=== PATIENT | female | born 1995 | race Caucasian/White ===

== ENCOUNTER 2017-09-25 10:06 | Emergency (ER) | payer OTHER, MEDICAID ==
[~2017-09-25 10:06] MED LIST: FERR324T4 PO; PREN0.01 PO
[2017-09-25 10:07] VITALS: BP 127/73; PULSE 116; RESP 14; TEMP 99.8; O2SAT 100
--- NOTE | 2017-09-25 10:36 | PD ---
HPI Chief Complaint: Cardiac Complaint Time Seen by Provider: 10:25 Travel History International Travel<30 days: No Contact w/Intl Traveler<30days: No Traveled to known affect area: No History of Present Illness HPI The patient was seen and examined in the presence of the nurse. This patient reports that she is 14 weeks . She has 24 hours of central chest pain and shortness of breath. At the same time her symptoms started she developed a cough. When she takes of breath or coughs or pain comes on. Symptoms are not exertional. No hemoptysis. Severity is mild to moderate. No alleviating factors. Symptoms worsened by cough or deep breath. No leg symptoms. PFSH Past Medical History Medical History: Denies Significant Hx Diminished Hearing: No Tetanus Vaccination: > 5 Years Influenza Vaccination: No ?: : 3 Para: 2 Past Surgical History Surgical History: No Previous Surgery Social History Alcohol Use: Yes Tobacco Use: No (quit) Substance Use: No Allergies-Medications (Allergen,Severity, Reaction): Coded Allergies: No Known Allergies (Verified Adverse Reaction, Unknown, 09/25/17) Reported Meds & Prescriptions Reported Meds & Active Scripts Active No Active Prescriptions or Reported Medications Review of Systems General / Constitutional: No: Fever Eyes: No: Visual changes HENT: No: Headaches Cardiovascular: Positive: Chest Pain or Discomfort Respiratory: Positive: Cough, Shortness of Breath Gastrointestinal: No: Abdominal Pain Genitourinary: No: Dysuria Musculoskeletal: No: Pain Skin: No Rash Neurologic: No: Weakness Psychiatric: No: Depression Endocrine: No: Polydipsia Hematologic/Lymphatic: No: Easy Bruising Physical Exam Narrative GENERAL: Well-nourished, well-developed patient in no apparent distress. SKIN: Focused skin assessment reveals no rash and nodules. Skin is Warm and dry. HEAD: Atraumatic. Normocephalic. EYES: Pupils equal and round. No scleral icterus. No injection or drainage. ENT: No nasal bleeding or discharge. Mucous membranes pink and moist. NECK: Trachea midline. No JVD. CARDIOVASCULAR: Regular rate and rhythm. No murmur appreciated. RESPIRATORY: No accessory muscle use. Clear to auscultation. Breath sounds equal bilaterally. GASTROINTESTINAL: Abdomen soft, non-tender, nondistended. Hepatic and splenic margins not palpable. MUSCULOSKELETAL: No obvious deformities. No clubbing. No cyanosis. No edema. NEUROLOGICAL: Awake and alert. No obvious cranial nerve deficits. Motor grossly within normal limits. Normal speech. PSYCHIATRIC: Appropriate mood and affect; insight and judgment normal. Data Data Last Documented VS Vital Signs Date Time Temp Pulse Resp B/P (MAP) Pulse Ox O2 Delivery O2 Flow Rate FiO2 09/25/17 12:30 95 18 102/68 (79) 97 Room Air 09/25/17 10:07 99.8 Orders Orders Chest, Single Ap (09/25/17 ) Electrocardiogram (09/25/17 ) Iv Access Insert/Monitor (09/25/17 11:41) Complete Blood Count With Diff (09/25/17 11:41) Basic Metabolic Panel (Bmp) (09/25/17 11:41) Beta Hcg (Quant/Titer) (09/25/17 11:41) Prothrombin Time / Inr (Pt) (09/25/17 11:41) Act Partial Throm Time (Ptt) (09/25/17 11:41) Lung Scan - Perfusion (09/25/17 11:50) Labs Laboratory Tests Test 09/25/17 12:20 White Blood Count 3.6 TH/MM3 Red Blood Count 4.08 MIL/MM3 Hemoglobin 12.6 GM/DL Hematocrit 36.8 % Mean Corpuscular Volume 90.1 FL Mean Corpuscular Hemoglobin 30.9 PG Mean Corpuscular Hemoglobin Concent 34.3 % Red Cell Distribution Width 12.3 % Platelet Count 128 TH/MM3 Mean Platelet Volume 8.6 FL Neutrophils (%) (Auto) 67.2 % Lymphocytes (%) (Auto) 19.3 % Monocytes (%) (Auto) 13.2 % Eosinophils (%) (Auto) 0.1 % Basophils (%) (Auto) 0.2 % Neutrophils # (Auto) 2.4 TH/MM3 Lymphocytes # (Auto) 0.7 TH/MM3 Monocytes # (Auto) 0.5 TH/MM3 Eosinophils # (Auto) 0.0 TH/MM3 Basophils # (Auto) 0.0 TH/MM3 CBC Comment DIFF FINAL Differential Comment Prothrombin Time 10.6 SEC Prothromb Time International Ratio 1.0 RATIO Activated Partial Thromboplast Time 30.3 SEC Blood Urea Nitrogen 5 MG/DL Creatinine 0.54 MG/DL Random Glucose 85 MG/DL Calcium Level 9.0 MG/DL Sodium Level 134 MEQ/L Potassium Level 3.6 MEQ/L Chloride Level 102 MEQ/L Carbon Dioxide Level 22.6 MEQ/L Anion Gap 9 MEQ/L Estimat Glomerular Filtration Rate 139 ML/MIN Human Chorionic Gonadotropin, Quant 05310 MIU/ML MDM Medical Decision Making Medical Screen Exam Complete: Yes Emergency Medical Condition: Yes Medical Record Reviewed: Yes Differential Diagnosis Bronchitis, pneumonia, pleurisy, PE Narrative Course I have reviewed the patient's electronic medical record. Patient looks clinically well with saturations of 100% and doesn't look short of breath However given her symptoms some testing is indicated She accepts and agrees to risk of radiation to get imaging done She will get a shielded chest x-ray and EKG start I reviewed her EKG which shows sinus rhythm at [address] elevation or ectopy I reviewed her chest x-ray which is normal Had a lengthy risk-benefit discussion with the patient. Symptoms are concerning for PE and her places her at greater risk for this. Therefore I have ordered a VQ scan. We discussed the drawbacks of the test. If it comes back indeterminate she will then unfortunately require CT pulmonary angiogram. I'm trying to avoid radiation load to her by ordering a V/Q. CBC and metabolic profiles are normal Beta titer 60,000 fortunately her VQ scan is come back as low probability.She is stable for outpatient follow-up. She should call her physician on Wednesday and return if she has significant worsening. Diagnosis Primary Impression: Pleuritic chest pain Additional Impression: and not yet delivered in second trimester Additional Instructions: The patient was advised to follow up with their physician and return if they worsen. Med/Other Pt SpecificInfo: Other Scripts No Active Prescriptions or Reported Meds Disposition: DISCHARGE HOME Condition: Stable Dontrell Gold MD Sep 25, 2017 10:36
--- NOTE | 2017-09-25 11:24 | RADRPT ---
EXAM DATE/TIME: 09/25/2017 11:07 [facility] COMPARISON: No previous studies available for comparison. INDICATIONS : Shortness of breath. MEDICAL HISTORY : None. SURGICAL HISTORY : None. ENCOUNTER: Initial ACUITY: 3 days PAIN SCORE: 0/10 LOCATION: chest FINDINGS: A single view of the chest demonstrates the lungs to be symmetrically aerated without evidence of mas s, infiltrate or effusion. The cardiomediastinal contours are unremarkable. Osseous structures are intact. CONCLUSION: No acute disease. Yoav Gr MD on September 25, 2017 at 11:22 Board Certified Radiologist. This report was verified electronically.
[2017-09-25 12:27] LABS: AUTOMATED NEUTROPHIL # 2.4 TH/MM3 (1.8-7.7); BASOPHIL % 0.2 % (0.0-2.0); EOSINOPHIL % 0.1 % (0.0-4.0); HEMATOCRIT 36.8 % (35.0-46.0); HEMOGLOBIN 12.6 GM/DL (11.6-15.3); LYMPH % 19.3 % (9.0-44.0); LYMPHOCYTE # 0.7 TH/MM3 (1.0-4.8); MEAN CELL VOLUME 90.1 FL (80.0-100.0); MEAN CORPUSCULAR HEMOGLOBIN 30.9 PG (27.0-34.0); MEAN CORPUSCULAR HGB CONC 34.3 % (32.0-36.0); MEAN PLATELET VOLUME 8.6 FL (7.0-11.0); MONO % 13.2 % (0.0-8.0); MONOCYTE # 0.5 TH/MM3 (0-0.9); NEUT % 67.2 % (16.0-70.0); PLATELET COUNT 128 TH/MM3 (150-450); RED BLOOD COUNT 4.08 MIL/MM3 (4.00-5.30); RED CELL DISTRIBUTION WIDTH 12.3 % (11.6-17.2); WHITE BLOOD COUNT 3.6 TH/MM3 (4.0-11.0)
[2017-09-25 12:30] VITALS: BP 102/68; PULSE 95; RESP 18; O2SAT 97
[2017-09-25 12:36] LABS: PROTHROMBIN TIME - PATIENT 10.6 SEC (9.8-11.6)
[2017-09-25 12:43] LABS: BICARBONATE 22.6 MEQ/L (21.0-32.0); CREATININE 0.54 MG/DL (0.50-1.00)
--- NOTE | 2017-09-25 14:10 | RADRPT ---
EXAM DATE/TIME: 09/25/2017 13:00 [facility] COMPARISON: No previous studies available for comparison. INDICATIONS : Shortness of breath with chest pain, patient . DOSE: 1.1 mCi Tc99m Labeled MAA IV MEDICAL HISTORY : None. SURGICAL HISTORY : None. ENCOUNTER: Initial ACUITY: 1 day PAIN SCALE: 3/10 LOCATION: Bilateral chest TECHNIQUE: The patient was injected with MAA, and eight-view perfusion scan was performed. FINDINGS: PERFUSION: There is a homogenous pattern of radiotracer uptake throughout both lungs. CONCLUSION: 1. Low probability for embolism Amauri Flores MD on September 25, 2017 at 13:57 Board Certified Radiologist. This report was verified electronically.
[2017-09-25 15:25] VITALS: BP 117/71
--- NOTE | 2017-09-26 14:05 | EKG ---
Date Performed: 09/25/2017 Time Performed: 10:37:50 PTAGE: 22 years EKG: SINUS TACHYCARDIA ABNORMAL RHYTHM ECG NO PREVIOUS TRACING DOCTOR: Gautam Rodriguez Interpretating Date/Time 09/26/2017 14:04:05
== END 2017-09-25 15:39 | disposition home or self-care (01) ==
LOC: NEPD 10:06
DX: O26.892 Other specified pregnancy related conditions, second trimester (principal); R07.89 Other chest pain; R06.02 Shortness of breath; R05 Cough; R00.0 Tachycardia, unspecified; R94.31 Abnormal electrocardiogram [ECG] [EKG]; Z3A.14 14 weeks gestation of pregnancy; Z34.92 Encounter for supervision of normal pregnancy, unspecified, second trimester
CPT/HCPCS: 71045; 78580; 80048; 84702; 85025; 85610; 85730; 93005; 99285; A9540

== ENCOUNTER 2018-02-10 12:32 | Emergency (ER) | payer OTHER, MEDICAID ==
--- NOTE | 2018-02-10 13:35 | PD ---
HPI Chief Complaint decreased movement Travel History International Travel<30 Days: No Contact w/Intl Traveler<30Days: No Known Affected Area: No History of Present Illness HPI Patient is a 22 yo F at 34 weeks gestation who presented to OB triage from her regular check up at [facility] decreased reactivity on doppler. Patient also with c/o of decreased movements for the past week. The baby still moves but is not as active as what is normal for her. Since being in the OB triage she has felt the baby move twice. Denies LOF or vaginal bleeding. Endorses mild on and off Taliaferro burch contractions. Denies CP, fever, chill, N/ V or abdominal pain. Weeks Gestation: 34 Para: 3 : 3 History Past Medical History Medical History: Denies Significant Hx Obstetric History Obstetric History x2, no complications no complications with this thus far Past Surgical History Surgical History: No Previous Surgery Family History Family History: Negative Social History Alcohol Use: No Tobacco Use: No Substance Abuse: No Allergies-Medications (Allergen,Severity, Reaction): Coded Allergies: No Known Allergies (Verified Adverse Reaction, Unknown, 09/25/17) Home Meds No Active Prescriptions or Reported Meds Review of Systems Except as stated in HPI: all other systems reviewed are Neg Physical Exam Narrative GENERAL: Well-nourished, well-developed patient. SKIN: Warm and dry. HEAD: Normocephalic and atraumatic. EYES: No scleral icterus. No injection or drainage. ENT: No nasal drainage noted. Mucous membranes pink. Airway patent. NECK: Supple, trachea midline. No JVD. CARDIOVASCULAR: Regular rate and rhythm without murmurs, gallops, or rubs. RESPIRATORY: Breath sounds equal bilaterally. No accessory muscle use. ABDOMEN/GI: Abdomen soft, non-tender, bowel sounds present, no rebound, no guarding Gravid to 34 weeks size GENITOURINARY: External Genitalia: intact and normal in appearance Membranes: intact Uterine Contractions: none FHT's: Category: 1 Baseline: 140 Reactive: yes Variability: moderate Decels: none EXTREMITIES: No cyanosis or edema. BACK: Nontender without obvious deformity. No CVA tenderness. NEUROLOGICAL: Awake and alert. Motor and sensory grossly within normal limits. Five out of 5 muscle strength in all muscle groups. Normal speech. Data Data Vital Signs Reviewed: Yes [facility] Medical Record Reviewed: Yes Plan Patient is a 22 yo F at 34 weeks gestation who presented to OB triage from her regular check up at [facility] decreased reactivity on doppler and c/o decreased movements. IUP at [address] patient on monitor for monitoring 1. category 1, NST reassuring 2. f/u UA 3. Patient to f/u with OB doctor as outpatient DW Dr. Galvan Diagnosis Diagnosis: Primary Impression: 34 weeks gestation of Disposition: 01 DISCHARGE HOME Condition: Stable Scripts No Active Prescriptions or Reported Meds Patient Instructions: General Instructions, Movement (ED) Rj Engle MD, R1 February 10, 2018 13:35
[2018-02-10 14:23] LABS: BACTERIA, URINE OCC /hpf; BILIRUBIN, URINE NEG (NEG); BLOOD, URINE NEG (NEG); GLUCOSE,URINE NEG (NEG); KETONE, URINE NEG (NEG); MUCUS URINE FEW /lpf (OCC); NITRITE,URINE NEG (NEG); PH, URINE 6.5 (5.0-8.5); SQUAMOUS EPITHELIAL CELL URINE 28 /hpf (0-5); URINE COLOR YELLOW (YELLW/STRAW); URINE LEUKOCYTE ESTERASE LARGE (NEG)
== END 2018-02-10 14:35 | disposition home or self-care (01) ==
LOC: HOBED 12:32
DX: O36.8130 Decreased fetal movements, third trimester, not applicable or unspecified (principal); Z3A.34 34 weeks gestation of pregnancy
CPT/HCPCS: 59025; 81001; 87086

== ENCOUNTER 2018-03-03 03:38 | Emergency (ER) | payer OTHER, MEDICAID ==
[~2018-03-03] VITALS: Ht 170.2 cm; Wt 70.3 kg
--- NOTE | 2018-03-03 05:23 | PD ---
HPI Chief Complaint ctxs Date Seen: Mar 03, 2018 Travel History International Travel<30 Days: No Contact w/Intl Traveler<30Days: No Known Affected Area: No History of Present Illness HPI pt. is a @37 weeks presents w/ c/o ctxs. pt. states thruout the evening has had ctxs that have increased in intensity and freq. +FM, no lof/ vb. pt. have cervical exam and have some vaginal bleeding. Weeks Gestation: 37 Para: 2 : 3 History Past Medical History Medical History: Denies Significant Hx Obstetric History Obstetric History , x 2 Past Surgical History Surgical History: No Previous Surgery Family History Family History: Negative Social History Alcohol Use: No Tobacco Use: No Substance Abuse: No Allergies-Medications (Allergen,Severity, Reaction): Coded Allergies: No Known Allergies (Verified Adverse Reaction, Unknown, 03/03/18) Home Meds No Active Prescriptions or Reported Meds Review of Systems Except as stated in HPI: all other systems reviewed are Neg Physical Exam Narrative GENERAL: Well-nourished, well-developed patient. SKIN: Warm and dry. HEAD: Normocephalic and atraumatic. EYES: No scleral icterus. No injection or drainage. ENT: No nasal drainage noted. Mucous membranes pink. Airway patent. NECK: Supple, trachea midline. No JVD. CARDIOVASCULAR: Regular rate and rhythm without murmurs, gallops, or rubs. RESPIRATORY: Breath sounds equal bilaterally. No accessory muscle use. ABDOMEN/GI: Abdomen soft, non-tender, bowel sounds present, no rebound, no guarding Gravid GENITOURINARY: External Genitalia: intact and normal in appearance SSE: some blood in post fornix. Dilatation: 3 Effacement: 70 Station: high Presentation: cephalic Membranes: intact Uterine Contractions: q3mins FHT's: Category: 1 Reactive: + Variability: mod EXTREMITIES: No cyanosis or edema. BACK: Nontender without obvious deformity. No CVA tenderness. NEUROLOGICAL: Awake and alert. Motor and sensory grossly within normal limits. Five out of 5 muscle strength in all muscle groups. Normal speech. 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 not in active labor. fht reassuring. pt. w/ medium amount of blood on pad and exam glove after cervical exam. blood noted in vault on exam, but resolved. bedside u/s performed and no bleeding noted. pt. observed for extended time and not believed to be having placental abruption. pt. to be d/c to home. given precautions for return. all ? answered. f/u as sched. Diagnosis Diagnosis: Primary Impression: False labor at or after 37 completed weeks of gestation, antepartum Additional Impressions: 37 or more weeks gestation of Vaginal bleeding during , antepartum Disposition: 01 DISCHARGE HOME Condition: Stable Scripts No Active Prescriptions or Reported Meds Jarod Galvan Jr., MD Mar 03, 2018 05:23
== END 2018-03-03 07:17 | disposition home or self-care (01) ==
LOC: HOBED 03:38
DX: O47.1 False labor at or after 37 completed weeks of gestation (principal); O46.93 Antepartum hemorrhage, unspecified, third trimester; Z3A.37 37 weeks gestation of pregnancy
CPT/HCPCS: 59025; 76815

== ENCOUNTER 2018-03-24 04:04 | Inpatient (IN) ==
[2018-03-24] MEDS ORDERED: Sodium Chlor 0.9% Inj 500 ML IV.SIG ONE (05:18)
[2018-03-24] MEDS ORDERED: Oxytocin 30 Units/500ml Premix 30 UNITS/500 ML BAG IV.SIG ONE (05:18)
[2018-03-24] MEDS ORDERED: Naloxone Inj 0.4 MG/ML Vial IV.PUSH PRN ×2 (05:18→15:56)
[2018-03-24] MEDS ORDERED: fentaNYL Citrate Inj 100 MCG/2 ML Ampul IV.PUSH PRN ×2 (05:18)
--- NOTE | 2018-03-24 05:27 | P.HPOB ---
History of Present Illness Primary Care Physician: UNKNOWN History of Present Illness: Patient's 22-year-old white female at 40 weeks presents to OB ED with spontaneous rupture of membranes early contractions. Patient goes to [facility] for care. We have her records. amnisure was positive, heart rate tracing is reactive she is michael every 3-4 minutes not really feeling them much Weeks Gestation:: 40 Para: 2 : 3 - Inpatient Certification If this patient has been admitted as an Inpatient: I certify that the inpatient services were ordered in accordance with Medicare regulations governing the order. This includes certification that hospital inpatient services are reasonable and necessary and in the case of services not specified as inpatient-only under 42 CFR 419.22(n), that they are appropriately provided as inpatient services in accordance to with the 2-midnight benchmark under 43 CFR 412.3(e) Estimated Total Length of Stay (Days): 2 Plans for Post Hospital Care: Home Review of Systems Constitutional: Denies anorexia, Denies body ache(s), Denies chills, Denies daytime sleepiness, Denies excessive sweating, Denies fatigue, Denies fever(s), Denies headache(s), Denies increased appetite, Denies lack of energy, Denies malaise, Denies night sweats, Denies weakness, Denies weight gain, Denies weight loss, Denies other Cardiovascular: Denies bluish discoloration of hand/feet, Denies chest pain, Denies chest pain at rest, Denies chest pain with activity, Denies excessive sweating, Denies fainting, Denies fast heart rate, Denies foot swelling, Denies generalized swelling, Denies irregular heart rhythm, Denies leg pain with activity, Denies leg sores, Denies leg swelling, Denies lightheadedness, Denies radiating jaw, neck or arm pain, Denies rapid, pounding, or irregular heartbeat , Denies shortness of breath, Denies shortness of breath with activity, Denies shortness of breath when lying down, Denies shortness of breath causing sudden awakening, Denies slow heart rate, Denies other Respiratory: Denies change in phlegm color, Denies chest congestion, Denies cough, Denies coughing up blood, Denies excessive phlegm production, Denies pain on inspiration, Denies pain with cough, Denies shortness of breath, Denies shortness of breath with activity, Denies snoring, Denies stridor, Denies wheezing, Denies other Gastrointestinal: Denies abdominal pain, Denies belching, Denies black, tarry stools, Denies bloating, Denies bright, red blood in stools, Denies change in bowel habits, Denies constant urge to pass stool, Denies change in stools, Denies coffee ground vomit, Denies constipation, Denies cramping, Denies difficulty swallowing, Denies excessive passing of gas, Denies feeling full early, Denies heartburn, Denies incontinent of stools, Denies loose stools, Denies nausea, Denies pain with swallowing, Denies vomiting, Denies vomiting blood, Denies other Genitourinary: Denies abnormal periods, Denies abnormal vaginal bleeding, Denies absent period, Denies bleeding between periods, Denies blood in urine, Denies difficulty starting urination, Denies difficulty urinating, Denies dribbling after urination, Denies frequent nighttime urination, Denies genital itching, Denies genital lesions, Denies heavy periods, Denies hot flashes, Denies light periods, Denies nipple discharge, Denies painful intercourse, Denies painful periods, Denies painful urination, Denies pelvic pain, Denies prolapse symptoms, Denies sexual problems, Denies side pain, Denies urinary incontinence, Denies urinary urgency, Denies vaginal discharge, Denies vaginal dryness, Denies vaginal odor, Denies vaginal itching, Denies other Neurologic: Denies abnormal hearing, Denies abnormal movements, Denies abnormal speech, Denies abnormal walking, Denies behavioral changes, Denies burning sensations, Denies confusion, Denies dizziness, Denies fainting, Denies frequent falls, Denies headache(s), Denies lack of coordination, Denies localized weakness, Denies loss of vision, Denies memory loss, Denies numbness, Denies other visual disturbances, Denies radiating pain, Denies restless legs, Denies convulsions, Denies seizure-like activity, Denies sensory deficit, Denies tingling, Denies tingling/numbness/burning sensations, Denies tremor(s), Denies unsteadiness, Denies weakness, Denies other PMFSH - History History Provided By: Patient - Tobacco History Smoking Status: Never smoker - Alcohol History How Often Do You Have a Drink Containing Alcohol: Never - Substance Use History Substance History: No History of Abuse - Travel History Recent Travel in the [place] Within the Last 8 Weeks: No Recent Travel Out of the Country Within the Last 8 Weeks: No Medications and Allergies Active Medications: Active Medications Citric Acid/Sodium Citrate (Sod Citrate/Citric Acid Liq) 30 ml PO [facility] Stop: 03/28/18 05:29 Fentanyl Citrate (Fentanyl Inj) 50 mcg IV.PUSH Q1H PRN PRN Reason: Pain Scale 3 - 5 Fentanyl Citrate (Fentanyl Inj) 100 mcg IV.PUSH Q1H PRN PRN Reason: PAIN SCALE 6 TO 10 Lactated Ringer's (Lr 1000 Ml Inj) 3,000 mls @ 3,000 mls/hr IV.SIG UNSCH ONE Stop: 03/24/18 06:17 Sodium Chloride (Ns Inj) 1,000 mls @ 100 mls/hr IV.CONT .Q10H [facility] Lactated Ringer's (Lr 1000 Ml Inj) 1,000 mls @ 125 mls/hr IV.CONT .Q8H [facility] Lidocaine HCl (Xylocaine 1% Inj) 0.1 ml INFILTRATN PRN PRN PRN Reason: For IV start Stop: 03/27/18 05:17 Lidocaine HCl (Xylocaine 1% Inj) 10 ml INFILTRATN PRN PRN PRN Reason: For episiotomy repair Stop: 03/26/18 05:17 Mineral Oil (Muri-Lube Oil) 10 ml TOPICAL PRN PRN PRN Reason: PRN perineal massage Naloxone HCl (Narcan Inj) 0.1 mg IV.PUSH Q2M PRN PRN Reason: for opiate reversal Allergies Allergy/AdvReac Type Severity Reaction Status Date / Time No Known Allergies AdvReac Unknown NONE Uncoded 03/24/18 04:55 Home Medications Medication Instructions Recorded Confirmed Type No Known Home Medications 03/20/18 03/24/18 History Exam Vital signs: Vital Signs 03/24/18 04:29 Temperature 97.9 F Pulse Rate 94 H Respiratory Rate 18 Blood Pressure 110/85 Intake & Output 03/23/18 03/23/18 03/24/18 06:59 18:59 06:59 Weight 157 kg - Constitutional no acute distress - Routine HEENT Exam Head: Present: normocephalic, atraumatic Eye: Present: PERRL - Routine Neck Exam Present: supple, full ROM - Routine Cardiovascular Exam Present: RRR - Routine Abdominal Exam Present: soft - Routine Exam Comments: Patient with gross rupture of membranes positive amnisure, cervix is 3/50/ minus [address] for several weeks Caprini VTE Risk Assessment Caprini VTE Risk Assessment: No/Low Risk (score <= 1) Caprini Risk Assessment Model: Point Value = 1 Point Value = 2 Point Value = 3 Point Value = 5 Age 41-60 Minor surgery BMI > 25 kg/m2 Swollen legs Varicose veins or History of unexplained or recurrent spontaneous Oral contraceptives or hormone replacement Sepsis (< 1 month) Serious lung disease, including pneumonia (< 1 month) Abnormal pulmonary function Acute myocardial infarction Congestive heart failure (< 1 month) History of inflammatory bowel disease Medical patient at bed rest Age 61-74 Arthroscopic surgery Major open surgery (> 45 min) Laparoscopic surgery (> 45 min) Malignancy Confined to bed (> 72 hours) Immobilizing plaster cast Central venous access Age >= 75 History of VTE Family history of VTE Factor V Leiden Prothrombin [id number] Lupus anticoagulant Anticardiolipin antibodies Elevated serum homocysteine Heparin-induced thrombocytopenia Other congenital or acquired thrombophilia Stroke (< 1 month) Elective arthroplasty Hip, pelvis, or leg fracture Acute spinal cord injury (< 1 month) Prophylaxis Regimen: Total Risk Factor Score Risk Level Prophylaxis Regimen 0-1 Low Early ambulation 2 Moderate Order ONE of the following: *Sequential Compression Device (SCD) *Heparin 5000 units SQ BID 3-4 Higher Order ONE of the following medications: *Heparin 5000 units SQ TID *Enoxaparin/Lovenox 40 mg SQ daily (WT < 150 kg, CrCl > 30 mL/min) *Enoxaparin/Lovenox 30 mg SQ daily (WT < 150 kg, CrCl > 10-29 mL/min) *Enoxaparin/Lovenox 30 mg SQ BID (WT < 150 kg, CrCl > 30 mL/min) AND/OR *Sequential Compression Device (SCD) 5 or more Highest Order ONE of the following medications: *Heparin 5000 units SQ TID (Preferred with Epidurals) *Enoxaparin/Lovenox 40 mg SQ daily (WT < 150 kg, CrCl > 30 mL/min) *Enoxaparin/Lovenox 30 mg SQ daily (WT < 150 kg, CrCl > 10-29 mL/min) *Enoxaparin/Lovenox 30 mg SQ BID (WT < 150 kg, CrCl > 30 mL/min) AND *Sequential Compression Device (SCD) Assessment and Plan - Diagnosis (1) Spontaneous rupture of amniotic membranes Status: Acute Plan: Plan for this patient is admission to labor and delivery, monitor mother and fetus, augment labor as needed, and anticipate vaginal delivery
[2018-03-24] MEDS ORDERED: Sod Chloride 0.9% Inj 1,000 ML IV.CONT SCH (05:30)
[2018-03-24] MEDS ORDERED: Citric Acid/Sodium Citrate Liq 15 ML UDC PO SCH (05:30)
[2018-03-24 06:30] LABS: Baso % (Auto) 0.2 % (0.0-2.0); Eos # (Auto) 0.1 th/mm3 (0.0-0.4); Eos % (Auto) 0.8 % (0.0-4.0); Hematocrit 35.4 % (35.0-46.0); Hemoglobin 12.1 gm/dL (11.6-15.3); Lymph # (Auto) 2.7 th/mm3 (1.0-4.8); Lymph % (Auto) 30.6 % (9.0-44.0); Mean Corpuscular HGB Conc 34.2 % (32.0-36.0); Mean Corpuscular Hemoglobin 30.3 pg (27.0-34.0); Mean Corpuscular Volume 88.4 fL (80.0-100.0); Mean Platelet Volume 8.5 fL (7.0-11.0); Mono # (Auto) 0.9 th/mm3 (0.0-0.9); Mono % (Auto) 9.6 % (0.0-8.0); Neut # (Auto) 5.2 th/mm3 (1.8-7.7); Neut % (Auto) 58.8 % (16.0-70.0); Platelet Count 172 th/mm3 (150-450); Red Cell Distribution Width 13.3 % (11.6-17.2); White Blood Count 8.9 th/mm3 (4.0-11.0)
[2018-03-24 08:09] LABS: Bacteria,Urine Rare /hpf; Bilirubin,Urine Negative (Negative); Clarity,Urine Clear (Clear); Color,Urine Yellow (Yellw/Straw); Glucose,Urine (UA) Negative (Negative); Leukocyte Esterase,Urine Negative (Negative); Mucus,Urine Few /lpf (Occasional); Nitrite,Urine Negative (Negative); Specific Gravity,Urine 1.006 (1.002-1.035)
[2018-03-24 08:15] LABS: Amphetamine Urine With Conf Neg (Neg); Benzodiazepine Urine With Conf Neg (Neg)
[2018-03-24] MEDS ORDERED: Oxytocin 30 Units/500ml Premix 30 UNITS/500 ML BAG IV.SIG PRN (08:42)
[2018-03-24] MEDS ORDERED: fentaNYL 2MCG-Bupiv 0.125% Epi 150 ML EPIDURAL ONE (09:24)
[2018-03-24] MEDS ORDERED: fentaNYL Citrate Inj 100 MCG/2 ML Ampul EPIDURAL ONE (12:47)
[2018-03-24] MEDS ORDERED: fentaNYL 2MCG-Bupiv 0.125% Epi 150 ML EPIDURAL PRN (12:47)
[2018-03-24] MEDS ORDERED: Lidocaine PF 1% Inj 30 ML Vial ONE (15:23)
[2018-03-24] MEDS ORDERED: Witch Hazel 50%/Glyderin 12.5% 40 Pad Jar RECTAL PRN (15:56)
[2018-03-24] MEDS ORDERED: Acetaminophen 325 MG Tablet PO PRN (15:56)
[2018-03-24] MEDS ORDERED: Benzocaine 20% Top Spray 60 ML Can TOPICAL PRN (15:56)
[2018-03-24] MEDS ORDERED: Ibuprofen 400 MG Tablet PO PRN (15:56)
[2018-03-24] MEDS ORDERED: Bisacodyl 10 MG Supp RECTAL PRN (15:56)
--- NOTE | 2018-03-24 15:56 | P.OBDELI ---
Weeks Gestation: 40 Medical Induction of Labor: Yes Medical Induction Start Date: 03/24/18 Anesthesia: Epidural Episiotomy: none Vaginal Delivery: Spontaneous Presentation: Occiput anterior Nuchal Cord: None Delayed Cord Clamping (45 sec): Yes Placenta: Spontaneous delivery Laceration: None Estimated blood loss (mL): 200 Infant: Female Infant Female A Infant Delivery Date: 03/24/18 Infant Delivery Time: 15:42 score (1 min): 9 score (5 min): 9 score (10 min): 1
[2018-03-24] MEDS ORDERED: Diphtheria/Tetanus/Pertussis Vaccine Inj 0.5 ML Syringe IM ONE (16:00)
[2018-03-24] MEDS ORDERED: Oxytocin 30 Units/500ml Premix 30 UNITS/500 ML BAG IV.CONT SCH (16:00)
[2018-03-24] MEDS ORDERED: Measles/Mumps/Rubella Vaccine Inj 0.5 ML Vial SQ ONE (16:00)
--- NOTE | 2018-03-25 09:38 | P.PNOB ---
Subjective Post day: 1 Interval history: Ms. Oliva is a 22yo at 40/0 on PPD1 with no complications during delivery. She reports abdominal cramping (worsening during breast feeding) and minimal low back pain. She denies shortness of breath, chest pain, leg pain, dizziness, nausea or vomiting. She has no difficulties with urination. She has not had a bowel movement or passed gas. She is breast feeding with no difficulties. She has no regular OBGYN and requests Nexplanon for control. Objective Vital Signs/I&O: Vital Signs 03/24/18 09:40 03/24/18 09:50 03/24/18 09:55 Temperature Pulse Rate 79 95 H 108 H Respiratory Rate Blood Pressure 122/88 130/83 124/80 03/24/18 10:00 03/24/18 10:05 03/24/18 10:10 Temperature Pulse Rate 86 90 91 H Respiratory Rate Blood Pressure 127/76 116/70 116/71 03/24/18 10:20 03/24/18 10:25 03/24/18 10:29 Temperature Pulse Rate 77 87 Respiratory Rate 18 Blood Pressure 119/68 03/24/18 10:30 03/24/18 10:40 03/24/18 10:46 Temperature Pulse Rate 80 85 77 Respiratory Rate Blood Pressure 115/72 104/53 L 03/24/18 11:00 03/24/18 11:15 03/24/18 11:17 Temperature 98.4 F Pulse Rate 76 76 Respiratory Rate 18 Blood Pressure 110/61 103/62 03/24/18 11:30 03/24/18 11:46 03/24/18 12:33 Temperature Pulse Rate 85 90 Respiratory Rate 18 Blood Pressure 102/51 L 110/79 03/24/18 12:34 03/24/18 13:06 03/24/18 13:17 Temperature 98.1 F Pulse Rate 106 H 79 Respiratory Rate Blood Pressure 103/55 L 102/67 03/24/18 13:20 03/24/18 13:48 03/24/18 14:17 Temperature Pulse Rate 78 74 Respiratory Rate 18 Blood Pressure 100/53 L 94/58 L 03/24/18 14:21 03/24/18 14:49 03/24/18 15:25 Temperature Pulse Rate 82 128 H Respiratory Rate 18 Blood Pressure 103/65 140/72 03/24/18 15:26 03/24/18 15:57 03/24/18 16:00 Temperature Pulse Rate 122 H Respiratory Rate 18 18 Blood Pressure 108/76 03/24/18 16:14 03/24/18 16:16 03/24/18 16:30 Temperature 97.8 F Pulse Rate 81 80 Respiratory Rate 18 18 Blood Pressure 110/76 105/74 03/24/18 16:49 03/24/18 17:00 03/24/18 17:25 Temperature Pulse Rate 168 H 66 80 Respiratory Rate 18 18 Blood Pressure 136/29 L 112/65 93/75 L 03/24/18 17:27 03/24/18 18:24 03/25/18 08:00 Temperature 98.9 F 97.5 F L Pulse Rate 85 80 70 Respiratory Rate 16 16 Blood Pressure 114/80 118/84 102/70 Intake & Output 03/24/18 03/25/18 03/25/18 18:59 06:59 18:59 Intake Total 2200 / 2200 Balance 2200 / 2200 Weight 71 kg Intake: IV 2200 / 2200 LR 1000 mL Inj 1,000 ML @ 125 1700 / 1700 mls/hr IV.CONT .Q8H [facility]INA Rx#: [id number] Pitocin 30 Units/NS 500 ml 500 / 500 Premix 30 units In 500 ml @ 1 MILLIUNIT/MIN 1 mls/hr IV.SIG TITRATE PRN Rx#:[id number] Other: Weight On Admission 71 kg Result Diagrams: 03/24/18 06:01 Objective Remarks: GENERAL: Well-nourished, well-developed patient. CARDIOVASCULAR: Regular rate and rhythm without murmurs, gallops, or rubs. RESPIRATORY: Breath sounds equal bilaterally. No accessory muscle use. ABDOMEN/GI: Abdomen soft, Minimally TTP diffusely. Fundus: Firm, non-tender about just umbilicus. GENITOURINARY: Light to moderate bleeding. EXTREMITIES: No cyanosis or edema, non-tender, without signs of DVT. 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 [facility] Stop: 03/28/18 05:29 Ephedrine Sulfate (Ephedrine/Ns Syringe) 10 mg IV.PUSH UNSCH PRN PRN Reason: SEE LABEL COMMENTS Stop: 03/25/18 12:47 Fentanyl Citrate (Fentanyl Inj) 50 mcg IV.PUSH Q1H PRN PRN Reason: Pain Scale 3 - 5 Fentanyl Citrate (Fentanyl Inj) 100 mcg IV.PUSH Q1H PRN PRN Reason: PAIN SCALE 6 TO 10 Last Admin: 03/24/18 07:20 Dose: 100 mcg Sodium Chloride (Ns Inj) 1,000 mls @ 100 mls/hr IV.CONT .Q10H [facility] Lactated Ringer's (Lr 1000 Ml Inj) 1,000 mls @ 125 mls/hr IV.CONT .Q8H [facility] Last Infusion: 03/24/18 16:58 Dose: Infused Oxytocin (Pitocin 30 Units/Ns 500 Ml Premix) 30 units in 500 mls @ 1 mls/hr IV.SIG TITRATE PRN; Protocol PRN Reason: For induction of labor Last Titration: 03/24/18 16:58 Dose: Infused Fentanyl/Bupivacaine/Sodium Chlor (Fentanyl 2 Mcg-Bupiv 0.125% Epi) 150 mls @ 12 mls/hr EPIDURAL PRN PRN PRN Reason: for Labor Pain Lactulose (Lactulose Liq) 30 ml PO DAILY PRN PRN Reason: SEVERE CONSITIPATION Lidocaine HCl (Xylocaine 1% Inj) 0.1 ml INFILTRATN PRN PRN PRN Reason: For IV start Stop: 03/27/18 05:17 Lidocaine HCl (Xylocaine 1% Inj) 10 ml INFILTRATN PRN PRN PRN Reason: For episiotomy repair Stop: 03/26/18 05:17 Mineral Oil (Muri-Lube Oil) 10 ml TOPICAL PRN PRN PRN Reason: PRN perineal massage Miscellaneous Information (Misc Information) 1 each OTHER UNSCH PRN PRN Reason: SEE LABEL COMMENTS Stop: 03/25/18 12:47 Miscellaneous Information (Misc Information) 1 each OTHER UNSCH PRN PRN Reason: SEE LABEL COMMENTS Stop: 03/25/18 12:47 Naloxone HCl (Narcan Inj) 0.1 mg IV.PUSH Q2M PRN PRN Reason: for opiate reversal Naloxone HCl (Narcan Inj) 0.1 mg IV.PUSH Q2M PRN PRN Reason: for opiate reversal Ondansetron HCl (Zofran Odt) 4 mg PO Q6H PRN PRN Reason: NAUSEA OR VOMITING Senna/Docusate Sodium (Anabel-Colace) 1 tab PO BID ARINA Sennosides (Senokot) 17.2 mg PO Q12H PRN PRN Reason: Moderate Constipation Sodium Chloride (Ns Flush) 2 ml IV.FLUSH BID ARINA Sodium Chloride (Ns Flush) 2 ml IV.FLUSH PRN PRN PRN Reason: FLUSH AFTER USING IV ACCESS Witch [place]aja/Glycerin (Tucks Pads) 1 applicatio RECTAL QID PRN PRN Reason: HEMORRHOIDS Last Admin: 03/24/18 21:04 Dose: 1 applicatio Assessment and Plan - Diagnosis (1) Follow-up, , routine Code(s): Z39.2 - Encounter for routine follow-up Status: Acute - Plan 1. Ms. Oliva is a 22yo on PPD1- routine post care 2. Abdominal pain- Continue Tylenol and Lortab PRN for pain control. 3. Constipation- patient counselled on staying well hydrated. Anabel colace ordered. Continue normal diet, out of bed with assistance. Patient counselled on pelvic rest for 6 weeks Showers instead of baths for next 2 weeks F/u in 6 weeks with [facility] for post care and scheduling for Nexplanon. SDW Jesse Rogers and Cristel Discharge Planning: Poss D/c home tomorrow if no issues arise
[2018-03-25] MEDS: Senna/Docusate Sodium 8.6/50 MG Tablet PO SCH (22:14)
[2018-03-26] MEDS: Senna/Docusate Sodium 8.6/50 MG Tablet PO SCH (11:07)
--- NOTE | 2018-03-26 11:17 | P.PNOB ---
Subjective Post day: 2 Interval history: Patient is a 22-year-old delivered at 40 weeks and 0 days. Patient is day 2 after spontaneous vaginal delivery. Patient's pain is well- controlled. Patient reports minimal bleeding. Patient reports eating and drinking without any nausea or vomiting. Patient has passed gas but has not had a bowel movement. Patient denies chest pain and shortness of breath. Patient has been ambulating; she denies lower extremity pain. Patient reports desire for Nexplanon placement at the [facility]. Patient has decided to breast-feed. Objective Vital Signs/I&O: Vital Signs 03/25/18 20:10 03/26/18 08:10 Temperature 98.5 F 97.9 F Pulse Rate 75 70 Respiratory Rate 17 20 Blood Pressure 108/77 123/82 Result Diagrams: 03/24/18 06:01 Objective Remarks: GENERAL: Well-nourished, well-developed patient. CARDIOVASCULAR: Regular rate and rhythm without murmurs, gallops, or rubs. RESPIRATORY: Breath sounds equal bilaterally. No accessory muscle use. ABDOMEN/GI: Abdomen soft, non-tender. Fundus: Firm, non-tender at umbilicus. GENITOURINARY: Light to moderate bleeding. EXTREMITIES: No cyanosis or edema, non-tender, without signs of DVT. Medications and IVs: Active Medications Acetaminophen (Tylenol) 650 mg PO Q4H PRN PRN Reason: PAIN SCALE 1 TO 2 Hydrocodone Bitart/Acetaminophen ([place] 7.5/325) 1 tab PO Q6H PRN PRN Reason: SEE LABEL COMMENTS Last Admin: 03/26/18 08:07 Dose: 1 tab Al Hydroxide/Mg Hydroxide (Milk Of Magnesia Liq) 30 ml PO Q12H PRN PRN Reason: Mild Constipation Benzocaine (Americaine 20% Top [place]) 1 spray TOPICAL Q4H PRN PRN Reason: For Perineum Discomfort Bisacodyl (Dulcolax Supp) 10 mg RECTAL DAILY PRN PRN Reason: SEVERE CONSITIPATION Citric Acid/Sodium Citrate (Sod Citrate/Citric Acid Liq) 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 [facility] Stop: 03/28/18 05:29 Fentanyl Citrate (Fentanyl Inj) 50 mcg IV.PUSH Q1H PRN PRN Reason: Pain Scale 3 - 5 Fentanyl Citrate (Fentanyl Inj) 100 mcg IV.PUSH Q1H PRN PRN Reason: PAIN SCALE 6 TO 10 Last Admin: 03/24/18 07:20 Dose: 100 mcg Sodium Chloride (Ns Inj) 1,000 mls @ 100 mls/hr IV.CONT .Q10H [facility] Lactated Ringer's (Lr 1000 Ml Inj) 1,000 mls @ 125 mls/hr IV.CONT .Q8H [facility] Last Infusion: 03/24/18 16:58 Dose: Infused Oxytocin (Pitocin 30 Units/Ns 500 Ml Premix) 30 units in 500 mls @ 1 mls/hr IV.SIG TITRATE PRN; Protocol PRN Reason: For induction of labor Last Titration: 03/24/18 16:58 Dose: Infused Fentanyl/Bupivacaine/Sodium Chlor (Fentanyl 2 Mcg-Bupiv 0.125% Epi) 150 mls @ 12 mls/hr EPIDURAL PRN PRN PRN Reason: for Labor Pain Lactulose (Lactulose Liq) 30 ml PO DAILY PRN PRN Reason: SEVERE CONSITIPATION Lidocaine HCl (Xylocaine 1% Inj) 0.1 ml INFILTRATN PRN PRN PRN Reason: For IV start Stop: 03/27/18 05:17 Mineral Oil (Muri-Lube Oil) 10 ml TOPICAL PRN PRN PRN Reason: PRN perineal massage Naloxone HCl (Narcan Inj) 0.1 mg IV.PUSH Q2M PRN PRN Reason: for opiate reversal Naloxone HCl (Narcan Inj) 0.1 mg IV.PUSH Q2M PRN PRN Reason: for opiate reversal Ondansetron HCl (Zofran Odt) 4 mg PO Q6H PRN PRN Reason: NAUSEA OR VOMITING Senna/Docusate Sodium (Anabel-Colace) 1 tab PO BID [facility]INA Last Admin: 03/26/18 11:07 Dose: 1 tab Sennosides (Senokot) 17.2 mg PO Q12H PRN PRN Reason: Moderate Constipation Sodium Chloride (Ns Flush) 2 ml IV.FLUSH BID [facility]INA Sodium Chloride (Ns Flush) 2 ml IV.FLUSH PRN PRN PRN Reason: FLUSH AFTER USING IV ACCESS [place]/Glycerin (Tucks Pads) 1 applicatio RECTAL QID PRN PRN Reason: HEMORRHOIDS Last Admin: 03/24/18 21:04 Dose: 1 applicatio Assessment and Plan - Plan Patient is a 22-year-old delivered at 40 weeks and 0 days. Patient is day 2 after spontaneous vaginal delivery. Continue routine care. Motrin and Tylenol when necessary for pain. Encourage OOB. Pelvic rest for 6 weeks will need follow-up appointment at that time. Contraception: Nexplanon placement at [facility]. Anticipate discharge today. [facility]ambo OB hospitalist - Attending Attestation The exam, history, and the medical decision-making described in the above note were completed with the assistance of the resident physician. I reviewed and agree with the findings presented. I attest that I had a [id number] encounter with the patient on the same day, and personally performed and documented my assessment and findings in the medical record.
== END 2018-03-26 13:03 | disposition home or self-care (01) ==
LOC: HOBED 04:04 → H2E 04:56 → H1EA 18:20
PROVIDERS: ADMIT Obstetrics & Gynecology Maternal & Fetal Medicine; ATTEND Obstetrics & Gynecology Maternal & Fetal Medicine